=== PATIENT | male | born 1955 | race Native Hawaiian/Other Pacific Islander ===

== ENCOUNTER 2018-05-21 11:42 | Emergency (ER) | payer BC ==
[~2018-05-21] VITALS: Ht 172.7 cm; Wt 97.5 kg
[2018-05-21 11:42] VITALS: TEMP 99.3
[2018-05-21 12:11] LABS: PLATELET COUNT 360 K/uL (142-355)
[2018-05-21 12:41] LABS: PARTIAL THROMBOPLASTIN TIME 23.6 SECONDS (24.5-33.6)
[2018-05-21 12:42] LABS: POTASSIUM 3.7 mmol/L (3.6-5.2); SODIUM 139 mmol/L (136-145)
[2018-05-21 13:10] VITALS: BP 122/72
== END 2018-05-21 13:12 | disposition short-term general hospital (02) ==
LOC: ED 11:42
DX: I21.09 ST elevation (STEMI) myocardial infarction involving other coronary artery of anterior wall (principal)
CPT/HCPCS: 36415; 80053; 82550; 84484; 85027; 85610; 85730; 92977; 93005; 96365; 96372; 96375; 99285; J1650; J2270; J3101; J3490

== ENCOUNTER 2018-12-14 10:39 | Emergency (ER) | payer BC ==
[~2018-12-14] VITALS: Ht 172.7 cm; Wt 92.1 kg
[2018-12-14 10:46] VITALS: TEMP 97.7
[2018-12-14] MEDS ORDERED: ASPIRIN 81 LOW81 MG PO (11:05)
[2018-12-14] MEDS ORDERED: ALLO100T22 PO (11:05)
[2018-12-14] MEDS ORDERED: CALCITRIOL0.5 MCG PO (11:06)
[2018-12-14] MEDS ORDERED: CARV3.12 PO (11:07)
[2018-12-14] MEDS ORDERED: CLOP75TA2 PO (11:07)
[2018-12-14] MEDS ORDERED: DICYCLOMINE HYD20 MG PO (11:12)
[2018-12-14] MEDS ORDERED: TRICOR145 M1 PO (11:12)
[2018-12-14] MEDS ORDERED: FELO10TA PO (11:12)
[2018-12-14] MEDS ORDERED: PANTOPRAZOLE 40MG TA PO (11:13)
[2018-12-14] MEDS ORDERED: TRAMADOL HYDROC50 MG PO (11:13)
[2018-12-14] MEDS ORDERED: COZAAR100 MG PO (11:13)
[2018-12-14] MEDS ORDERED: VIAGRA100 MG PO (11:14)
[2018-12-14 11:51] LABS: PLATELET COUNT 270 K/uL (142-355)
[2018-12-14 12:06] LABS: POTASSIUM 5.1 mmol/L (3.6-5.2); SODIUM 129 mmol/L (136-145)
[2018-12-14 14:25] VITALS: BP 128/68
== END 2018-12-14 14:25 | disposition home or self-care (01) ==
LOC: ED 10:39
PROVIDERS: Internal Medicine
DX: E11.65 Type 2 diabetes mellitus with hyperglycemia (principal); R53.83 Other fatigue; H53.8 Other visual disturbances
CPT/HCPCS: 36415; 80053; 81000; 82550; 84484; 85027; 93005; 96365; 96374; 99284; J1815